=== PATIENT | female | born 1955 | race Caucasian/White ===

== ENCOUNTER → 2018-03-05 15:43 | Outpatient (CLI) | payer OTHER, SELFPAY ==
--- OUTSIDE RECORDS SUMMARY | 2018-04-21 23:02 | XMS RPT_ITS | Summary of Care ---
:1955 Author Organization [facility] Address [address] [place] [address] Phone Care Team Providers Name Role Phone Paras Castillo MD Primary Care Provider Reason for Visit Reason Comments Pain Encounter Details Date Type Department Care Team Description 04/19/2017 Office Visit [facility] Orthopedic Azael Marcum Cervical spondylosis and Sports Medicine MD [place] without myelopathy [address] (Primary Dx) Medical Office [address] [phone] [place] [address] Allergies Active Allergy Reactions Severity Noted Date Comments Penicillins GI Intolerance Low 04/29/2015 as of this encounter Medications Prescription Sig. Disp. Refills Start Date End Date Status diclofenac sodium Place 4 g on the 5 Tube 1 02/19/2015 Active (VOLTAREN) 1 % Gel skin 4 (four) times a day topiramate (TOPAMAX) 25 12/29/2014 Active MG tablet DEXILANT 60 mg capsule 02/24/2015 Active IMITREX 100 mg tablet 12/13/2014 Active NEURONTIN 300 mg capsule 01/22/2015 Active doxycycline (VIBRAMYCIN) 03/11/2015 Active 100 MG capsule ibuprofen (ADVIL,MOTRIN) Take 1 tablet 90 tablet 0 04/15/2015 Active 800 MG tablet (800 mg total) by mouth 2 (two) times a day as needed for pain ibuprofen (ADVIL,MOTRIN) Take 1 tablet 90 tablet 1 05/03/2015 Active 600 MG tablet (600 mg total) by mouth 2 (two) times a day as needed for pain. cyclobenzaprine Take 0.5 tablets 60 tablet 0 05/13/2015 Active (FLEXERIL) 10 MG tablet (5 mg total) by mouth 3 (three) times a day as needed for muscle spasms. cyclobenzaprine Take 1 tablet (5 90 tablet 1 05/19/2015 Active (FLEXERIL) 5 MG tablet mg total) by mouth 3 (three) times a day as needed for muscle spasms. cefdinir (OMNICEF) 300 04/27/2016 Active MG capsule VIBERZI 100 mg Tab 05/14/2016 Active sulfamethoxazole-trimeth 05/01/2016 Active oprim (BACTRIM DS,SEPTRA DS) 800-160 mg per tablet as of this encounter Active Problems Problem Noted Date Cervical spondylosis without myelopathy 08/04/2016 Sprain, ankle joint, medial 08/05/2015 Sprain of cervical neck 05/13/2015 Hand pain, right 05/13/2015 Contusion of arm, multiple sites 04/15/2015 Bilateral low back pain without sciatica 03/11/2015 Social History Tobacco Use Types Packs/Day Years Used Date Never Smoker Smokeless Tobacco: Never Used Alcohol Use Drinks/Week oz/Week Comments No 0 Standard drinks or equivalent 0.0 Sex Assigned at Date Recorded Not on file as of this encounter Last Filed Vital Signs Vital Sign Reading Time Taken Blood Pressure 136/63 04/19/2017 3:15 PM EST Pulse 67 04/19/2017 3:15 PM EST Temperature - - Respiratory Rate - - Oxygen Saturation - - Inhaled Oxygen Concentration - - Weight 95.7 kg (211 lb) 04/19/2017 3:15 PM EST Height 160 cm (5' 3) 04/19/2017 3:15 PM EST Body Mass Index 37.38 04/19/2017 3:15 PM EST in this encounter Progress Notes Viau, Azael Franco MD - 04/19/2017 3:39 PM ESTFormatting of this note may be different from the original. [facility] [address] ([address]) [facility] [address] [facility] [phone] Harsha Kaur is a 61 y.o. female being seen today, 04/19/17, Chief Complaint Patient presents with ??? Neck - Pain [chief complaint] neck pain HPI Dictation: [hpi] has chronic neck pain with allow diagnosis through [employer]. claim of spondylosis withoutmyelopathy. She had a recent MRI done [facility] which I am seeing the report whichshows multilevel degenerative disease loss of normal lordotic curvature but no significant central or foraminal stenosis and short not a surgical issue she was requesting referral to Dr. Whittington would like him to the physician record. Physical Exam Dictation: [PE] restricted cervical motion all planes no radicular component negative Spurling Assessment and Plan Dictation: [AP] request authorization pain management with Dr. Whittington I will see her back on as-needed basis I have reviewed all relevant histories, medications, allergies, and problem list items with Harsha Kaur during this visit. Review of Systems Constitutional: Negative for appetite change, fatigue and fever. HENT: Negative for sore throat and trouble swallowing. Respiratory: Negative for chest tightness and shortness of breath. Cardiovascular: Negative. Negative for chest pain and palpitations. Gastrointestinal: Negative for nausea and vomiting. Endocrine: Negative. Genitourinary: Negative. Skin: Negative. Allergic/Immunologic: Negative. Neurological: Negative. Negative for light-headedness and headaches. Hematological: Negative. Psychiatric/Behavioral: Negative for agitation and confusion. BP 136/63 Pulse 67 Ht 5' 3 Wt 95.7 kg (211 lb) BMI 37.38 kg/m?? Imaging: No results found. SNOMED CT(R) 1. Cervical spondylosis without myelopathy CERVICAL SPONDYLOSIS WITHOUT MYELOPATHY Return if symptoms worsen or fail to improve. Azael Marcum MDin this encounter Plan of Treatment Health Maintenance Due Date Last Done Comments COLONOSCOPY 1955 HEPATITIS C SCREENING 1955 PAP SMEAR 1955 TETANUS EVERY 10 YR 1955 SEQUENTIAL INFLUENZA VACCINE (#1) 2016 01/29/2013 as of this encounter Visit Diagnoses Diagnosis Cervical spondylosis without myelopathy - Primary Insurance Payer Benefit Plan / Group Subscriber ID Type Phone Address [employer] [id number] Work: [address] [phone] [place], [place] [address] Home: [phone] as of this encounter
--- OUTSIDE RECORDS SUMMARY | 2018-04-21 23:02 | XMS RPT_ITS ---
:1955 Author Organization OHIP Care Team Providers Name Role Phone JOSE F SHARIF Referring Unavailable JES MATHUR Attending Unavailable JES MATHUR Referring Unavailable Camila Keith Admitting Unavailable Camila Keith Attending Unavailable Solomon Aguirre Primary Care Unavailable BETY RODRIGUEZ Attending Unavailable SOLOMON AGUIRRE Primary Care Unavailable Austin Faria Attending Unavailable Austin Faria Referring Unavailable SOLOMON AGUIRRE Primary Care Unavailable PROBLEMS PROBLEMS DATE TYPE CONDITION / CODE ATTENDING STATUS SOURCE 10/04/2017 Active Encounter for NA Active [facility] screening [facility] mammogram for Repository malignant neoplasm of breast / Z12.31(ICD-10) 04/19/2017 Admitting Spondylosis BETY RODRIGUEZ Active [facility] diagnosis without GEN [place] Repository myelopathy or radiculopathy, cervical region / M47.812(ICD-10) PROCEDURES PROCEDURES No Procedure Records FoundRESULTS RESULTS OBSOLETE Observed: 04/15/2018 Status: COMPLETED Source: [place] 12:[address] [facility] REPOSITORY Refill (NEURMM) KIMMY KAUR ([id number]) 1955 F Date Time Provider Department 04/15/18 SUZETTE YOST During your visit today, we recorded the following information about you: Jose Elias Claros 04/15/2018 9:53 AM Signed Patient calling for refill on Neurontin and states it must be the brand name. Insurance MMO: [phone] for prior auth. She needs a PA done for the medication and [facility]. Thanks I have pended the medication Patricia Ann MA 04/15/2018 10:15 AM Signed Patient has been identified by name and date of : Yes RX INSTRUCTIONS: Pharmacy initiated this request. No need to notify patient. Patient phones requesting refills as follows: Pending Prescriptions Disp Refills NEURONTIN 300 MG CAPSULE 1080 capsule 1 Sig: Take 4 capsules by mouth three times daily for 180 days. DISPENSE WRITTEN. DO NOT AUTHORIZE CHANGE TO GENERIC GIL: Yes Please review and advise. AMIRA Reyes MD 04/15/2018 11:16 AM Signed The following approved medication requests have been transmitted electronically. Signed Prescriptions Disp Refills NEURONTIN 300 mg capsule 1080 capsule 1 Sig: Take 4 capsules by mouth three times daily for 180 days. DISPENSE WRITTEN. DO NOT AUTHORIZE CHANGE TO GENERIC GIL: Yes Authorizing Provider: SUZETTE YOST MD PDMP website checked and validated. All prescriptions have been APPROPRIATELY filled. No suspicious activity was identified. 04/15/2018 by Suzette Yost MD Allergies As of Date: 04/15/2018 Noted Allergy Reaction environmental [Other] 08/02/2010 4 - Hives PENICILLIN G 02/07/2016 8 - GI Upset Date Reviewed: 10/04/2017 Reviewed by: Jayshree Paula Ma - Fully Assessed Reason for Visit: Refill Request [94] Insurance Authorization [[id number]] Order(s):NEURONTIN 300 mg capsuleTake 4 capsules by mouth three times daily for 180 days. DISPENSE WRITTEN. DO NOT AUTHORIZE CHANGE TO GENERICDisp: 1080 capsuleRfl: 1 Prescriptions as of 04/15/2018 Sig: NEURONTIN 300 MG CAPSULE Take 4 capsules by mouth thre* DICLOFENAC 1 % TOPICAL GEL every 6-12 hours as needed fo* ESTRADIOL-NORETHINDRONE ACET * Take 1 tablet by mouth once d* TOPIRAMATE 25 MG TABLET Take 2 tablets by mouth once * CLOTRIMAZOLE-BETAMETHASONE 1 * Apply 1 application to affect* OMEPRAZOLE 10 MG CAPSULE,CASIE* Take 10 mg by mouth once vishnu* IMITREX 100 MG TABLET Take 1 tablet by mouth as nee* KLONOPIN ORAL Take 50 mg by mouth once vishnu* ELUXADOLINE 100 MG TABLET Take 100 mg by mouth twice da* PANTOPRAZOLE ORAL Take 40 mg by mouth. CYCLOBENZAPRINE 5 MG TABLET Take 1 tablet by mouth at bed* TRAMADOL 50 MG TABLET Take 1 tablet by mouth every * DEXLANSOPRAZOLE 60 MG CAPSULE* Take by mouth. OTC PRODUCT Shaklee pain relief complex OTC PRODUCT Z-bec nutritional supplement * VITAMIN B-12 ORAL Take by mouth. CALCIUM 500 + D ORAL Take by mouth. 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 DISPENSE WRITTEN. DO NOT AUTHORIZE CHANGE TO GENERIC Medications Discontinued During This Encounter NEURONTIN 300 mg capsule 1080* 1 10/05/2017 04/15/2018 Route: ORAL Sig: Take 4 capsules by mouth three times daily for 180 days. DISPENSE WRITTEN. DO NOT AUTHORIZE CHANGE TO GENERIC Disc: Reason for discontinue is not on file. Encounter Status:Closed by PEDRO GIBBS MA on 04/15/18 Observed: 03/05/2018 Status: F Source: PHYLLIS CULTURE, THROAT 8:30 AM [facility] [place] [place] REPOSITORY Culture, Throat Normal throat ryan isolated. No beta-hemolytic streptococcus isolated. Performed By: #### M100.1000 #### [facility] [address] [place], [address] HPV W/GENOTYPE Collected: 10/04/2017 Status: F Source: [place] 4:[address] [facility] REPOSITORY TYPE CODE TESTS RESULT OUT OF REFERENCE UNITS RANGE LAB HPVT16 HPV HighRisk Negative for Type 16 HPV DNA high risk type 16 by PCR. LAB HPVT18 HPV HighRisk Negative for Type 18 HPV DNA high risk type 18 by PCR. LAB HPVHRO HPV HighRisk Negative for Other HPV DNA high risk types: 31,33,35,39,45 ,51,52,56,58,5 9,66,68 by PCR. Result Comment: This test was developed and its performance characteristics determined by [facility] [place] ([facility]). It has not been cleared or approved by the FDA. [facility] is regulated under CLIA as qualified to perform high-complexity testing. This test is used for clinical purposes. It should not be regarded as inv estigational or for research. Performed By: #### HPVHRR #### [facility] [address] [place], [place] [address] CYTOLOGY Observed: 10/04/2017 Status: C Source: [place] 4:[address] [facility] REPOSITORY ADDITIONAL PROCEDURES PRESENT Specimen originated from [facility] Specimen #: [id number] Submitting Physician: JES MATHUR MD SPECIMEN SUBMITTED A: CERVICAL, SCREENING, FLUID FINAL DIAGNOSIS A. CERVICAL, SCREENING, FLUID Satisfactory for interpretation. No endocervical component. Negative for intraepithelial lesion or malignancy. This specimen has been analyzed by the ThinPrep Imaging System, an automated imaging and review system, which assists the laboratory in evaluating cells on ThinPrep Pap tests. Following automated imaging, selected alfred from every slide are reviewed by a energy conservation technician. CHITO Jimenez(ASCP) (Electronic Signature) ADDITIONAL PROCEDURE(S) HUMAN PAPILLOMA VIRUS Date Ordered: 10/08/2017 Date Reported: 10/09/2017 Procedure Results and Interpretation Negative for HPV DNA high risk type 16 by PCR. Negative for HPV DNA high risk type 18 by PCR. Negative for HPV DNA high risk types: 31,33,35,39,45,51,52,56,58,59,66,68 by PCR. This test was developed and its performance characteristics determined by [facility] [place] ([facility]). It has not been cleared or approved by the FDA. [facility] is regulated under CLIA as qualified to perform high-complexity testing. This test is used for clinical purposes. It should not be regarded as investigational or for research. CLINICAL DATA ROUTINE EXAM, HPV Testing: Yes, automatic HPV patients over 30 Date of Last Menstrual Period: 02/22/2010 Menstrual History: Post-Menopausal STAINS A: CERVICAL, SCREENING, FLUID THIN PREP DISPLAY SCREEN FABRICATOR Priyanka Logan M.D., Manager Consumer Insights Date of Report: 10/10/2017 Date of Procedure: 10/04/2017 Date of Receipt: 10/08/2017 Submitted by: JES MATHUR MD Location: A10 Diagnostic interpretation performed at [facility], [address] [place] [address]. The Pap Smear is a screening test for cervical cancer. False negative results occur with all screening tests, emphasizing the need for rescreening at recommended intervals, and clinical correlation. PROGRESS Observed: 10/04/2017 Status: COMPLETED Source: [place] 3:14 PM [facility] REPOSITORY O ID: [id number] Author: Jes Mathur Service: (none) Author Type: Physician Type: Progress Notes Filed: 10/04/2017 4:23 PM Note Text: Kimmy Kaur is an 62 year old female who is post menopausal. 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 Also has appointment set up with psychiatry for this. No other boiling tub operator complaints. . Age at menopause: 57 Patient on HRT: Yes cheryl chawla Ever used HRT: Yes Menopausal Symptoms: no hot flashes but sensations of uncontrolled and non situational/non sexual orgasms continue Sexual Hx: Not Sexually Active Abnormal Bleeding: No Hx of abnormal pap: No History of abnormal mammogram? No PAST MEDICAL HISTORY Diagnosis Date - Arthritis - Depression - GERD (gastroesophageal reflux disease) PAST SURGICAL HISTORY Procedure Laterality Date - BX BREAST PERC NEED W/GUID 05/02/12 U/S needle core upper mid right breast - EGD 2011 - PAST SURGICAL HISTORY OF 1994 septoplasty - REMOVAL OF TONSILS,<12 Y/O Review of Systems: Breast: No breast lumps, nipple d/c, overlying skin changes, redness or skin retraction Urinary: frequency Bowel: No blood in stool, pain with BM, tarry stool, persistent diarrhea or constipation Constitutional symptoms: none Colonoscopy: has but unsure when Bone Density: states has had done outside facility Smoker:no Exercise:walks OBJECTIVE: pleasant, well developed, well nourished, in no apparent distress HEART: normal, Regular rate and rhythm LUNGS: clear to auscultation NECK: Full range of motion,no adenopathy,thyroid normal BREASTS: breasts symmetric, no dominant or suspicious mass, no skin or nipple changes, no axillary adenopathy ABDOMEN: Normal abdominal exam PELVIC: external genitalia normal, normal Bartholin's glands, urethra, Big Clifty's glands, no vulvar lesions, no cervical lesions, good vaginal support, normal appearing perineal body and perianal region BIMANUAL: exam compromised by body habitus and no cervical motion tenderness,uterus normal size, shape and consistency,no adnexal masses,non-tender RECTAL: No Mass ASSESSMENT/PLAN: 1. Encounter for gynecological examination without abnormal finding - ICD9: V72.31, ICD10: Z01.419 (primary diagnosis) - Completed pap test and breast exam - check HPV - Encouraged monthly BSE 2. Pap smear for cervical cancer screening - ICD9: V76.2, ICD10: Z12.4 - PAP FLUID CERVICAL SCREENING 3. Special screening examination for human papillomavirus (HPV) - ICD9: V73.81, ICD10: Z11.51 - PAP FLUID CERVICAL SCREENING 4. Paresthesia of skin - ICD9: 782.0, ICD10: R20.2 Continues with non sexual spontaneous orgasms. Discussed lack of clear etiology and that there may be many contributing variables. Discussed psychiatric evaluation which patient has scheduled. - ESTRADIOL-NORETHINDRONE ACET 0.5 MG-0.1 MG TABLET Jes Mathur MD CNCO Observed: 10/04/2017 Status: COMPLETED Source: [place] 2:[address] [facility] REPOSITORY HNO ID: [id number] Author: Mammography Coordinator Service: (none) Author Type: Physician Type: Letter Filed: 10/08/2017 11:32 PM Note Text: October 04, 2017 PID: [id number] Kimmy Kaur [facility] [place] [address] Dear Ms. Kaur, We are pleased to inform you that the results of your recent breast imaging exam on 10/04/2017 are normal. Early detection of cancer is very important. We also understand recommendations regarding breast cancer screening are controversial. Please discuss with your primary care provider which strategy is best for you and whether a mammogram is right for you. Your imaging studies and report will be kept on file at [facility] as part of your permanent medical record and are available for your continuing care. Thank you for allowing us to help in meeting your health care needs. Sincerely, Dr. Wesley Interpreting Radiologist [facility] (Normal over 40) CNOV Observed: 10/04/2017 Status: COMPLETED Source: [place] 2:[address] [facility] REPOSITORY Office Visit (WCTRMN) KIMMY KAUR ([id number]) 1955 F Date Time Provider Department 10/04/17 2:30 PM JES MATHUR WCTRMN During your visit today, we recorded the following information about you: Blood pressure Weight Height 128/80 93.9 kg 1.638 m Jes Mathur MD 10/04/2017 4:23 PM Signed Kimmy Kaur is an 62 year old female who is post menopausal. 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 Also has appointment set up with psychiatry for this. No other boiling tub operator complaints. . Age at menopause: 57 Patient on HRT: Yes cheryl chawla Ever used HRT: Yes Menopausal Symptoms: no hot flashes but sensations of uncontrolled and non situational/non sexual orgasms continue Sexual Hx: Not Sexually Active Abnormal Bleeding: No Hx of abnormal pap: No History of abnormal mammogram? No PAST MEDICAL HISTORY Diagnosis Date - Arthritis - Depression - GERD (gastroesophageal reflux disease) PAST SURGICAL HISTORY Procedure Laterality Date - BX BREAST PERC NEED W/GUID 05/02/12 U/S needle core upper mid right breast - EGD 2011 - PAST SURGICAL HISTORY OF 1994 septoplasty - REMOVAL OF TONSILS,<12 Y/O Review of Systems: Breast: No breast lumps, nipple d/c, overlying skin changes, redness or skin retraction Urinary: frequency Bowel: No blood in stool, pain with BM, tarry stool, persistent diarrhea or constipation Constitutional symptoms: none Colonoscopy: has but unsure when Bone Density: states has had done outside facility Smoker:no Exercise:walks OBJECTIVE: pleasant, well developed, well nourished, in no apparent distress HEART: normal, Regular rate and rhythm LUNGS: clear to auscultation NECK: Full range of motion,no adenopathy,thyroid normal BREASTS: breasts symmetric, no dominant or suspicious mass, no skin or nipple changes, no axillary adenopathy ABDOMEN: Normal abdominal exam PELVIC: external genitalia normal, normal Bartholin's glands, urethra, Big Clifty's glands, no vulvar lesions, no cervical lesions, good vaginal support, normal appearing perineal body and perianal region BIMANUAL: exam compromised by body habitus and no cervical motion tenderness,uterus normal size, shape and consistency,no adnexal masses,non-tender RECTAL: No Mass ASSESSMENT/PLAN: 1. Encounter for gynecological examination without abnormal finding - ICD9: V72.31, ICD10: Z01.419 (primary diagnosis) - Completed pap test and breast exam - check HPV - Encouraged monthly BSE 2. Pap smear for cervical cancer screening - ICD9: V76.2, ICD10: Z12.4 - PAP FLUID CERVICAL SCREENING 3. Special screening examination for human papillomavirus (HPV) - ICD9: V73.81, ICD10: Z11.51 - PAP FLUID CERVICAL SCREENING 4. Paresthesia of skin - ICD9: 782.0, ICD10: R20.2 Continues with non sexual spontaneous orgasms. Discussed lack of clear etiology and that there may be many contributing variables. Discussed psychiatric evaluation which patient has scheduled. - ESTRADIOL-NORETHINDRONE ACET 0.5 MG-0.1 MG TABLET Jes Mathur MD Referring Provider: JES MATHUR [[id number]] Allergies As of Date: 10/04/2017 Noted Allergy Reaction environmental [Other] 08/02/2010 4 - Hives PENICILLIN G 02/07/2016 8 - GI Upset Date Reviewed: 10/04/2017 Reviewed by: Jayshree Paula Ma - Fully Assessed Reason for Visit: Established Patient [175] Primary Visit Diagnosis:Encounter for gynecological examination without abnormal finding [Z01.419] Other Visit Diagnoses:Pap smear for cervical cancer screening [Z12.4] Special screening examination for human papillomavirus (HPV) [Z11.51] Paresthesia of skin [R20.2] Order(s):Estradiol-Norethindrone Acet (MIMVEY LO) 0.5-0.1 mg tabTake 1 tablet by mouth once daily.Disp: 90 tabletRfl: 3 PAP FLUID CERVICAL SCREENING [[id number]] Order #: [id number]. #:[id number] HPV W/GENOTYPE [SQHPVHRR] Order #: [id number]. #:[id number] Prescriptions as of 10/04/2017 Sig: ESTRADIOL-NORETHINDRONE ACET * Take 1 tablet by mouth once d* X NEURONTIN 300 MG CAPSULE Take 4 capsules by mouth thre* TOPIRAMATE 25 MG TABLET Take 2 tablets by mouth once * CLOTRIMAZOLE-BETAMETHASONE 1 * Apply 1 application to affect* OMEPRAZOLE 10 MG CAPSULE,CASIE* Take 10 mg by mouth once vishnu* IMITREX 100 MG TABLET Take 1 tablet by mouth as nee* DICLOFENAC 1 % TOPICAL GEL every 6-12 hours as needed fo* KLONOPIN ORAL Take 50 mg by mouth once vishnu* ELUXADOLINE 100 MG TABLET Take 100 mg by mouth twice da* PANTOPRAZOLE ORAL Take 40 mg by mouth. CYCLOBENZAPRINE 5 MG TABLET Take 1 tablet by mouth at bed* TRAMADOL 50 MG TABLET Take 1 tablet by mouth every * OTC PRODUCT Shaklee pain relief complex VITAMIN B-12 ORAL Take by mouth. CALCIUM 500 + D ORAL Take by mouth. * COMPOUNDED PRESCRIPTION Formula 3 antifungal for toe * DEXLANSOPRAZOLE 60 MG CAPSULE* Take by mouth. 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 Medications Discontinued During This Encounter Estradiol-Norethindrone Acet (MIMVEY* 30 t* 11 12/29/2016 10/04/2017 Route: ORAL Sig: Take 1 tablet by mouth once daily. Disc: Reason for discontinue is not on file. Letter Text [employer] Manager Architect and [facility] [place] Jes Mathur MD [address] [address] October 10, 2017 DerrickNereida Kaur [address] [facility] [address] Dear Kimmy Kaur, I have received the following test results: Pap Smear: normal High Risk HPV: negative Please follow up as scheduled or as needed. If you would like to receive future test results electronically, please sign up for [facility] Perpetuall at [email or web address]. Sincerely, Jes Mathur MD Encounter Status:Closed by JES MATHUR MD on 10/04/17 [facility] SCREENING Observed: 10/04/2017 Status: F Source: [place] 2:13 PM [facility] REPOSITORY * * *Final Report* * * DATE OF EXAM: Oct 04 2017 2:13PM [facility] 0581 - [facility] SCREENING / PROCEDURE REASON: Encounter for screening mammogram for malignant neoplasm of breast * * * * Physician Interpretation * * * * RESULT: #[id number] - [facility] SCREENING BILATERAL DIGITAL SCREENING MAMMOGRAM WITH CAD: 10/04/2017 HISTORY: Encounter For Screening Mammogram For Malignant Neoplasm Of Breast /Screening Mammogram - patient reports NO symptoms. RESULT: TECHNIQUE: The study was acquired using full field digital technology and interpreted from soft copy. Current study was also evaluated with a Computer Aided Detection (CAD). Comparison is made to exam dated: 10/03/2016 mammogram - [facility]. There are scattered fibroglandular elements in both breasts. There is a benign mass in the right breast. There also is a biopsy clip in the right breast. No significant masses, calcifications, or other findings are seen in either breast. There has been no significant interval change. IMPRESSION: BENIGN FINDING There is no mammographic evidence of malignancy.A 1 year screening mammogram is recommended. Ramonita Wesley M.D., mc/john:10/04/2017 14:58:29 Cigarette Book Maker: Afia DOBBINS (R)(Isabela), [facility] letter sent: Normal over 40 Mammogram BI-RADS: 2 Benign finding Bathroom Tiling Professional: John Transcribe Date/Time: Oct 04 2017 2:04P Dictated by : RAMONITA ROSADO MD This examination was interpreted and the report reviewed and electronically signed by: RAMONITA ROSADO MD on Oct 04 2017 2:58PM EST [id number] Collected: 07/10/2017 Status: F Source: [facility] 8:52 AM [facility] REPOSITORY TYPE CODE TESTS RESULT OUT OF RANGE REFERENCE UNITS LAB [id number](LO 0.30-5.60 mIU/m INC) Normal TSH 2.54 Performed By: #### [id number] #### [facility] [address] [place] [address] FREE T4 Collected: 07/10/2017 Status: F Source: [facility] 8:52 AM [facility] REPOSITORY TYPE CODE TESTS RESULT OUT OF RANGE REFERENCE UNITS LAB [id number](LO 0.58-1.64 ng/dL INC) Normal T4 Free 0.78 Result Comment: Patients receiving more than 5mg/day of biotin may have interference in test results. A sample should be taken no sooner than eight hours after previous dose. Performed By: #### [id number] #### [facility] [address] [place] [address] DHEAS Collected: 07/10/2017 Status: F Source: [facility] 8:52 AM [facility] REPOSITORY TYPE CODE TESTS RESULT OUT OF RANGE REFERENCE UNITS LAB [id number](LO microgram/d INC) L Normal DHEAS 79.8 Result Comment: Age Male Female 0-30 days Not Estab. Not Estab. 1-12 months 4.8 - 64.1 4.8 - 64.1 1- 4 years 0.1 - 56.4 1.8 - 97.2 5- 8 years 18.0 - 194.0 26.1 - 141.9 9-11 years 49.5 - 270.5 35.0 - 192.6 12-14 years 49.5 - 270.5 67.8 - 328.6 15-19 years 115.3 - 459.6 110.0 - 433.2 20-24 years 164.3 - 530.5 110.0 - 431.7 25-34 years 138.5 - 475.2 84.8 - 378.0 35-44 years 102.6 - 416.3 57.3 - 279.2 45-54 years 71.6 - 375.4 41.2 - 243.7 55-64 years 48.9 - 344.2 29.4 - 220.5 65-74 years 30.9 - 295.6 20.4 - 186.6 75+ years 20.8 - 226.4 13.9 - 142.8 Performed At: [facility] [id number] [place], [place] [id number] Alvarado Jarrett PhD Ph:[phone] Performed By: #### [id number] #### [facility] Send Outs Subsection [facility] [place] [address] TESTOST TOTAL Collected: 07/10/2017 Status: F Source: [facility] 8:52 AM [facility] REPOSITORY TYPE CODE TESTS RESULT OUT OF RANGE REFERENCE UNITS LAB [id number](L ng/dL OINC) Normal Testoster Tot 4 Result Comment: MALE MANUEL STAGE FEMALE MANUEL STAGE 1 <3 1 <3 - 6 2 <3 - 432 2 <3 - 10 3 65 - 778 3 <3 - 24 4 180 - 763 4 <3 - 27 5 188 - 882 5 5 - 38 MALE ADULT 264 - 916 FEMALE ADULT 20-49 years 8 - 48 >49 years 3 - 41 Adult male reference interval is based on a population of healthy nonobese males (BMI <30) between 19 and 39 years old. Saumya et.al. JCEM 2017,102;3662-1203. PMID: [id number]. Performed At: [facility] [address] [place] [id number] Alvarado Jarrett PhD Ph:[phone] Performed By: #### [id number] #### [facility] Send Outs Subsection [facility] [place] [address] ALLERGIES ALLERGIES DATE TYPE / CODE NAME / CODE REACTION SEVERITY SOURCE 02/07/2016 DRUG PENICILLIN G GI UPSET [facility] INGREDI/[id number]( Clinic Main SNOMED CT) [place] Repository 04/29/2015 Drug PENICILLINS Nausea Low [facility] Class/[id number](SN Three OMED CT) Repository 08/02/2010 Miscellaneous OTHER HIVES [facility] Allergy/[id number]( Clinic Main SNOMED CT) [place] Repository Drug/[id number](SNO No Known Islam MED CT) Allergies [facility] Repository Drug/[id number](SNO Grass Islam MED CT) [facility] Repository Miscellaneous Hay Islam Allergy/[id number]( [facility] SNOMED CT) System Repository Miscellaneous Pollen Islam Allergy/[id number]( [facility] SNOMED CT) System Repository Drug/[id number](SNO penicillins Islam MED CT) [facility] Repository ENCOUNTERS ENCOUNTERS ADMIT/DISCHARGE ACCOUNT NUMBER ADMITTING ENCOUNTER LOCATION SOURCE CLASS 03/05/2018 [id number] Ambulatory [facility] ding:LABSPEC Repository 10/04/2017/10/10/19 [id number] Ambulatory [address] Main [place] Repository 10/04/2017 [id number] Ambulatory [facility] Repository 07/10/2017/07/11/19 [id number] Camila Keith Ambulatory Islam Islam 18 [facility] ding[facility] Repository 04/19/2017/04/19/19 [id number] Ambulatory Building:[place] [address] [address] Three R Repository PAYERS PAYERS ENCOUNTER GUARANTOR PAYER SUBSCRIBER SOURCE 03/05/2018 KIMMY Lawler MIGNON Primary KIMMY Nuris Ferguson [address] Insurance:MEDICAL BILICKDOB: [facility] [id number]: Number: Repository [id number] () Date:[id number] [address] [place] [id number]: 03/05/2018 Secondary NOT GIVENUNK Phyllis Insurance:SELF PAY [facility] Number: Effective Repository Date:2018-03-05 07/10/2017 DERRICK Primary KIMMY Servin BILICKDOB: Insurance:Medical BILICKDOB: [facility] [id number] [facility] Number: [id number] System 3RD Effective E [address] Repository [facility], Date:2017-07-10 - [place] [id number]: [id number] [place] [id number]: Name:Phi Orosco () [address] [place] [address] ()Tel: [phone]: [phone] 04/19/2017 KIMMY A Primary KIMMY Lawler [facility] BILICKDOB: Insurance:WORKER'S BILICKDOB: Three Repository [id number] E COMPPolicy Number: [id number] [facility] [id number] E [facility], Date:[id number] [place], [place] [address]Mgn: [id number] [address]Cix: [phone]: [phone] ([phone] (WP)
== END ==
PROVIDERS: Family Provider Family Medicine; PCP Family Medicine; Referring Provider Otolaryngology Otolaryngology/Facial Plastic Surgery; Visit Provider Otolaryngology Otolaryngology/Facial Plastic Surgery
DX: J02.9 Acute pharyngitis, unspecified (principal)
CPT/HCPCS: 87070

== ENCOUNTER → 2019-11-25 17:36 | Outpatient (CLI) | payer OTHER, SELFPAY | PROVIDERS: Referring Provider Internal Medicine Gastroenterology; Visit Provider Internal Medicine Gastroenterology | DX: Z11.59 Encounter for screening for other viral diseases (principal) | CPT/HCPCS: 87635; C9803; U0003 ==

== ENCOUNTER → 2021-07-19 | Outpatient (CLI) | payer OTHER, SELFPAY | END | disposition home or self-care (01) | LOC: LABSPEC 15:26 | PROVIDERS: Referring Provider Otolaryngology Otolaryngology/Facial Plastic Surgery; Visit Provider Otolaryngology Otolaryngology/Facial Plastic Surgery | DX: J32.9 Chronic sinusitis, unspecified (principal) | CPT/HCPCS: 87070; 87205 ==

== ENCOUNTER → 2022-02-15 | Outpatient (CLI) | payer OTHER, SELFPAY | END | disposition home or self-care (01) | LOC: LABSPEC 15:28 | PROVIDERS: PCP Family Medicine; Visit Provider Otolaryngology Otolaryngology/Facial Plastic Surgery | DX: J32.8 Other chronic sinusitis (principal) | CPT/HCPCS: 87070; 87205 ==

== ENCOUNTER 2022-03-14 14:00 | Outpatient (RCR) | payer OTHER, SELFPAY ==
--- NOTE | 2021-12-20 15:25 | HP.PTEVAL_ITS ---
Patient's Visit Information HARSHA KAUR is a 66 year old F referred to Physical Therapy by Dr. Ric Lee MD with a diagnosis of LOW BACK PAIN RADIATING TO RIGHT LEG. Date of Evaluation: 12/20/21 Physical Therapist: Austin Caruso, PT, Cert MDT, OCS - Visit Plan Frequency: 2x /Week Duration: 4 Weeks Plan: PT INTERVTIONS POSTURAL EX'S/TRAINING ,MANULA THERAPY STM ,MODALTIES US/ESTM/CP/MHP ,ACTIVITY MODIFICATION - Subjective This 66 y/o female presents to physical therapy with lumbar radiculopathy . Patient has lumbar pain many years ~ 10 years . Patient recently had [place] and stent placement June 23 2021. Patient was in Cardiac Rehab at [facility] and felt being on Machines cardio and weights made symptoms worse . Patient seen recommended prednisone 5 days trigger CHAMBERLAIN . Patient seen family MD recommended PT. Patient had no diagnostics. Patient right lumbar glut and hamstrings. Aggravating factors stairs, lifting ,bending and extended walking/standing. Alleviating pain cream, rest ,CP. Patient sees chiropractor 1x week. Denies paresthesia/tingling. Bowel/bladder -. Coughing/sneezing -. Patient symptoms affects QOL and function. SOCIAL: single. VOCATION: RETIRED. - Pain Left Back Pain Intensity (Out of 10): 0 Pain Intensity Range: 10 Right Lower Extremity Pain Intensity (Out of 10): 1 Pain Intensity Range: 2, 10 Comment: BUTTUCK/HAMS Right Back Pain Intensity (Out of 10): 0 Pain Intensity Range: 10 - Objective POSTURE: mild forward posture. PALPATION: tender LS left ,paraspinals lumbar ,piriformis. SYMTRETRIES: align. GAIT: reciprocal pattern. MMT: quads/hams 4- /5 ,hip flexion 4-/5,ankle 4/5 ,hip abductors 4-/5. FLEXABILITY: hamstrings min tight ,mod pirifirms. HIP IR: 10 degrees - Special Tests L/S Slump test left side: Negative L/S Slump test right side: Negative L/S Left Straight Leg Raise: Negative L/S Right Straight Leg Raise: Negative - Balance/Special Test Scores Oswestry Low Back Score: 27 - Goals Goal 1:: Patient to I with HEP as isrrael Goal Time Frame: 4-6 Weeks Goal 2:: Patient to improve posture for ADLS 80% of the time Goal Time Frame: 4-6 Weeks Goal 3:: Patient to demonstrate 50% improvement with increase function and less pain Goal Time Frame: 4-6 Weeks Goal 4:: Patient to improve lumbar ROM for function of recovery to tie shoes Goal Time Frame: 4-6 Weeks Goal 5:: Patient to improve back oswesrty score by 5 points or > to improve function/QOL. Goal Time Frame: 4-6 Weeks - Rehabilitation Potential Physical Therapy Diagnosis: Patient has lumbar radiculopathy with pain right leg worse with positioning and movement testing ,increases with standing/walking thus benefit from skilled PT to address these impairments Rehabilitation Potential: Good - Anticipated Interventions Patient/Client Instruction: Educate patient on: Condition, Plan of Care For the Purpose of:: To decrease pain, To increase ROM, To improve muscle performance and motor function, To improve ability to perform ADL's, To increase tolerance to activity/condition/position, To improve ability of physical actions for home/community/work/leisure, To improve health of tissue, To decrease soft tissue restriction, To increase flexibility/ROM, To improve tolerance to ADL's Therapeutic Exercise to Include: Strength training, Dynamic Lumbar Stabilization For the Purpose of:: To decrease pain, To improve muscle performance and motor function, To improve ability of physical actions for home/community/work/leisure, To improve health of tissue, To decrease soft tissue restriction, To increase flexibility/ROM, To improve tolerance to ADL's Manual Therapy Techniques to Include: Soft tissue mobilization Comment: LUMBAR For the Purpose of:: To decrease pain, To increase ROM, To improve nutrient delivery to tissue, To increase oxygenation perfusion, To improve health of tissue, To decrease soft tissue restriction TENS: Yes IF ES: Yes Cryotherapy (ice pack, ice massage): Yes Thermo therapy (hot pack): Yes Ultrasound (thermal/non thermal): Yes For the Purpose of:: To decrease pain, To increase ROM, To improve nutrient delivery to tissue, To increase oxygenation perfusion, To improve health of tissue, To decrease soft tissue restriction Thank you for the opportunity to evaluate your patient. For Medicare and Medicare HMO plans, please review the plan of care and approve it. It will need to be FAXED BACK to us at [phone] for Medicare purposes. For Medicare only, by signing this I certify the plan of care. Please let me know if there are questions or concerns regarding this plan of care. Physician Signature: Date:
--- NOTE | 2021-12-21 13:58 | HP.PTEVAL ---
Patient's Visit Information HARSHA KAUR is a 66 year old F referred to Physical Therapy by Dr. Ric Lee MD with a diagnosis of LOW BACK PAIN RADIATING TO RIGHT LEG. Date of Evaluation: 12/20/21 Physical Therapist: Austin Caruso, PT, Cert MDT, OCS - Visit Plan Frequency: 2x /Week Duration: 4 Weeks Plan: PT INTERVTIONS POSTURAL EX'S/TRAINING ,MANULA THERAPY STM ,MODALTIES US/ESTM/CP/MHP ,ACTIVITY MODIFICATION - Subjective This 66 y/o female presents to physical therapy with lumbar radiculopathy . Patient has lumbar pain many years ~ 10 years . Patient recently had [place] and stent placement June 23 2021. Patient was in Cardiac Rehab at [facility] and felt being on Machines cardio and weights made symptoms worse . Patient seen recommended prednisone 5 days trigger CHAMBERLAIN . Patient seen family MD recommended PT. Patient had no diagnostics. Patient right lumbar glut and hamstrings. Aggravating factors stairs, lifting ,bending and extended walking/standing. Alleviating pain cream, rest ,CP. Patient sees chiropractor 1x week. Denies paresthesia/tingling. Bowel/bladder -. Coughing/sneezing -. Patient symptoms affects QOL and function. SOCIAL: single. VOCATION: RETIRED. - Pain Left Back Pain Intensity (Out of 10): 0 Pain Intensity Range: 10 Right Lower Extremity Pain Intensity (Out of 10): 1 Pain Intensity Range: 2, 10 Comment: BUTTUCK/HAMS Right Back Pain Intensity (Out of 10): 0 Pain Intensity Range: 10 - Objective POSTURE: mild forward posture. PALPATION: tender LS left ,paraspinals lumbar ,piriformis. SYMTRETRIES: align. GAIT: reciprocal pattern. MMT: quads/hams 4-/5 ,hip flexion 4-/5,ankle 4/5 ,hip abductors 4-/5. FLEXABILITY: hamstrings min tight ,mod pirifirms. HIP IR: 10 degrees. LUMBAR ROM: flexion mod loss ,extension mod loss ,side glides mod loss - Special Tests L/S Slump test left side: Negative L/S Slump test right side: Negative L/S Left Straight Leg Raise: Negative L/S Right Straight Leg Raise: Negative - Balance/Special Test Scores Oswestry Low Back Score: 27 - Goals Goal 1:: Patient to I with HEP as isrrael Goal Time Frame: 4-6 Weeks Goal 2:: Patient to improve posture for ADLS 80% of the time Goal Time Frame: 4-6 Weeks Goal 3:: Patient to demonstrate 50% improvement with increase function and less pain Goal Time Frame: 4-6 Weeks Goal 4:: Patient to improve lumbar ROM for function of recovery to tie shoes Goal Time Frame: 4-6 Weeks Goal 5:: Patient to improve back oswesrty score by 5 points or > to improve function/QOL. Goal Time Frame: 4-6 Weeks - Rehabilitation Potential Physical Therapy Diagnosis: Patient has lumbar radiculopathy with pain right leg worse with positioning and movement testing ,increases with standing/walking thus benefit from skilled PT to address these impairments Rehabilitation Potential: Good - Anticipated Interventions Patient/Client Instruction: Educate patient on: Condition, Plan of Care For the Purpose of:: To decrease pain, To increase ROM, To improve muscle performance and motor function, To improve ability to perform ADL's, To increase tolerance to activity/condition/position, To improve ability of physical actions for home/community/work/leisure, To improve health of tissue, To decrease soft tissue restriction, To increase flexibility/ROM, To improve tolerance to ADL's Therapeutic Exercise to Include: Strength training, Dynamic Lumbar Stabilization For the Purpose of:: To decrease pain, To improve muscle performance and motor function, To improve ability of physical actions for home/community/work/leisure, To improve health of tissue, To decrease soft tissue restriction, To increase flexibility/ROM, To improve tolerance to ADL's Manual Therapy Techniques to Include: Soft tissue mobilization Comment: LUMBAR For the Purpose of:: To decrease pain, To increase ROM, To improve nutrient delivery to tissue, To increase oxygenation perfusion, To improve health of tissue, To decrease soft tissue restriction TENS: Yes IF ES: Yes Cryotherapy (ice pack, ice massage): Yes Thermo therapy (hot pack): Yes Ultrasound (thermal/non thermal): Yes For the Purpose of:: To decrease pain, To increase ROM, To improve nutrient delivery to tissue, To increase oxygenation perfusion, To improve health of tissue, To decrease soft tissue restriction Thank you for the opportunity to evaluate your patient. For Medicare and Medicare HMO plans, please review the plan of care and approve it. It will need to be FAXED BACK to us at [phone] for Medicare purposes. For Medicare only, by signing this I certify the plan of care. Please let me know if there are questions or concerns regarding this plan of care. Physician Signature: Date:
== END 2022-03-14 19:00 | disposition home or self-care (01) ==
LOC: PT 14:00
PROVIDERS: PCP Family Medicine; Referring Provider Family Medicine; Visit Provider Family Medicine
DX: M54.50 Low back pain, unspecified (principal); G89.29 Other chronic pain
CPT/HCPCS: 97014; 97035; 97110; 97140; 97162; G0283

== ENCOUNTER → 2024-05-14 | Outpatient (CLI) | payer MEDICARE, SELFPAY ==
--- NOTE | 2024-05-14 13:53 | NEURO ---
NCS and/or EMG Patient Report Ordering Doctor: Gin Santoyo DATE OF SERVICE: 05/14/24 Kimmy Padron presents complaints of pain in the feet, more prominent on the lateral aspect of the left foot. She reports intermittent numbness and tingling in the feet. Electrodiagnostic findings: Peroneal motor nerve demonstrates normal distal latency, amplitude and conduction velocity bilaterally. Tibial motor response within normal limits bilaterally. Normal peroneal and tibial F?waves. Prolonged H?reflex bilaterally. Sensory responses are within normal limits. Needle EMG testing was performed in the lower limbs. All muscles tested showed no evidence of denervation with normal motor unit action potentials. Electrodiagnostic impression: This is a normal electrodiagnostic study of the lower limbs. There is no electrodiagnostic evidence for peripheral polyneuropathy or lumbosacral radiculopathy. If symptoms persist, could consider nerve biopsy to evaluate for small fiber neuropathy, which would not be picked up on nerve conduction testing. Multi Select Codes Neurology Neurology Interp Codes: 84024-99 Musc test done w/n test comp (interp) (2) and 89289-90 Nrv cndj test 9-10 studies (interp)
== END | disposition home or self-care (01) ==
PROVIDERS: PCP Family Medicine; Referring Provider Podiatrist; Visit Provider Podiatrist
DX: G64 Other disorders of peripheral nervous system (principal)
CPT/HCPCS: 95886; 95911